=== PATIENT | female | born 1995 | race Caucasian/White ===

== ENCOUNTER 2021-01-10 21:15 | Outpatient (CLI) | payer OTHER | END 2021-01-11 12:52 | disposition home or self-care (01) | LOC: GENOP 21:15 | DX: O26.893 Other specified pregnancy related conditions, third trimester (principal); O99.891 Other specified diseases and conditions complicating pregnancy; R10.10 Upper abdominal pain, unspecified; Z3A.30 30 weeks gestation of pregnancy | CPT/HCPCS: 76705; 81001; 82731; 96360; 96361; 96367; 96372; 96374; C9113; J0702; J2405; J2550 ==

== ENCOUNTER 2021-01-25 20:40 | Outpatient (CLI) | payer OTHER ==
[2021-01-25 02:41] LABS: HEMOGLOBIN 11.7 gm/dl (12.3-15.3); RED BLOOD COUNT 3.87 M/UL (4.00-5.10); WHITE BLOOD COUNT 16.6 K/UL (4.5-11.0)
[2021-01-25 03:07] LABS: BUN/CREATININE RATIO 10 (0-10)
== END 2021-01-25 23:42 | disposition home or self-care (01) ==
LOC: GENOP 20:40
PROVIDERS: Obstetrics & Gynecology
DX: O26.893 Other specified pregnancy related conditions, third trimester (principal); R10.11 Right upper quadrant pain; R11.2 Nausea with vomiting, unspecified; E86.0 Dehydration; Z3A.32 32 weeks gestation of pregnancy
CPT/HCPCS: 36415; 80053; 81001; 82150; 83690; 85025; 96360; 96361; 96367; 96374; C9113; J0295; J0595; J2405; J2550; J7120

== ENCOUNTER 2021-01-26 23:07 | Outpatient (CLI) | payer OTHER | END 2021-01-27 18:13 | disposition home or self-care (01) | LOC: GENOP 23:07 | DX: O62.9 Abnormality of forces of labor, unspecified (principal); O26.892 Other specified pregnancy related conditions, second trimester; K82.9 Disease of gallbladder, unspecified; Z3A.32 32 weeks gestation of pregnancy | CPT/HCPCS: 81001; 96361; 96374; J2405; J7120 ==

== ENCOUNTER 2021-03-15 16:36 | Outpatient (CLI) | payer OTHER ==
[2021-03-15 18:45] LABS: HEMOGLOBIN 11.9 gm/dl (12.3-15.3); RED BLOOD COUNT 3.94 M/UL (4.00-5.10); WHITE BLOOD COUNT 10.4 K/UL (4.5-11.0)
[2021-03-15 19:07] LABS: BUN/CREATININE RATIO 9 (0-10)
== END 2021-03-15 20:02 | disposition home or self-care (01) ==
LOC: GENOP 16:36
PROVIDERS: Obstetrics & Gynecology
DX: O36.8330 Maternal care for abnormalities of the fetal heart rate or rhythm, third trimester, not applicable or unspecified (principal); O99.613 Diseases of the digestive system complicating pregnancy, third trimester; K80.10 Calculus of gallbladder with chronic cholecystitis without obstruction; O99.353 Diseases of the nervous system complicating pregnancy, third trimester; G43.901 Migraine, unspecified, not intractable, with status migrainosus; O99.343 Other mental disorders complicating pregnancy, third trimester; F31.81 Bipolar II disorder; O99.513 Diseases of the respiratory system complicating pregnancy, third trimester; J45.30 Mild persistent asthma, uncomplicated; O99.213 Obesity complicating pregnancy, third trimester; E66.9 Obesity, unspecified; Z3A.39 39 weeks gestation of pregnancy
CPT/HCPCS: 80053; 81001; 82150; 83690; 85025

== ENCOUNTER 2021-03-23 05:35 | Inpatient (IN) | payer OTHER ==
[~2021-03-23] VITALS: Ht 182.9 cm; Wt 111.1 kg
[2021-03-23 06:20] LABS: HEMOGLOBIN 12.1 gm/dl (12.3-15.3); RED BLOOD COUNT 4.01 M/UL (4.00-5.10); WHITE BLOOD COUNT 11.9 K/UL (4.5-11.0)
[2021-03-23] MEDS ORDERED: VITAFOL-OB+DHA1 EACH PO (10:10)
[2021-03-24 06:03] LABS: HEMOGLOBIN 10.7 gm/dl (12.3-15.3)
[2021-03-24] MEDS ORDERED: HYDROCODON-ACE1 EAC4 PO (09:37)
[2021-03-24] MEDS ORDERED: DOCUSATE SODIU100 MG PO (09:37)
[2021-03-24] MEDS ORDERED: IBUPROFEN600 MG PO (09:37)
== END 2021-03-25 15:12 | disposition home or self-care (01) | DRG 806 ==
LOC: OB 05:35
PROVIDERS: Obstetrics & Gynecology; ADMIT Obstetrics & Gynecology
PROC: 10E0XZZ Delivery of Products of Conception, External Approach (ICD-10-PCS; principal; 2021-03-23)
PROC: 0HQ9XZZ Repair Perineum Skin, External Approach (ICD-10-PCS; 2021-03-23)
PROC: 3E033VJ Introduction of Other Hormone into Peripheral Vein, Percutaneous Approach (ICD-10-PCS; 2021-03-23)
PROC: 4A1HXCZ Monitoring of Products of Conception, Cardiac Rate, External Approach (ICD-10-PCS; 2021-03-23)
DX: O41.03X0 Oligohydramnios, third trimester, not applicable or unspecified (principal); O99.354 Diseases of the nervous system complicating childbirth; Z37.0 Single live birth; O99.344 Other mental disorders complicating childbirth; F31.9 Bipolar disorder, unspecified; Z3A.40 40 weeks gestation of pregnancy; Z20.822 Contact with and (suspected) exposure to COVID-19; G43.909 Migraine, unspecified, not intractable, without status migrainosus; O62.2 Other uterine inertia; O76 Abnormality in fetal heart rate and rhythm complicating labor and delivery; O70.0 First degree perineal laceration during delivery
CPT/HCPCS: 36415; 51702; 81001; 82800; 85014; 85018; 85025; J0595; J2210; J2405; J2590; J7120; U0002